=== PATIENT | female | born 1930 | race Caucasian/White ===

== ENCOUNTER → 2017-02-28 | Outpatient (CLI) | payer MEDICARE ==
[~2017-02-28] MED LIST: ALEV220C2 PO; ASPI81CH PO; ATOR1TAB19 PO; CELE1CAP9 PO; DONETAB6 PO; LEVO30TA PO; OMEP20CA3 PO; PRED20TA PO; VITA200028 PO; [UNRECOGNIZED DRUG - OTHER] PO
--- NOTE | 2017-02-28 13:09 | REP ---
RIGHT WRIST SERIES: FOUR VIEWS. History: Pain. Findings: Four views of the right wrist demonstrate dorsal soft tissue swelling over the carpus. There is advanced diffuse osteoporosis. 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 There is no evidence of fracture or other acute bony abnormality. Impression: Osteoarthritis as above and diffuse osteoporosis. No acute bony abnormality seen. Signed by Adebayo Klein MD 02/28/2017 03:05 P
== END ==
LOC: M WUC 11:04
PROVIDERS: ATTEND Physician Assistant
DX: M25.531 Pain in right wrist (principal); M19.031 Primary osteoarthritis, right wrist; M81.0 Age-related osteoporosis without current pathological fracture

== ENCOUNTER 2017-03-06 10:38 | Emergency (ER) | payer MEDICARE ==
[~2017-03-06] VITALS: Ht 162.6 cm; Wt 71.5 kg
[2017-03-06] MEDS ORDERED: CELE1CAP9 PO (10:53)
[2017-03-06] MEDS ORDERED: ATOR1TAB19 PO (10:53)
[2017-03-06] MEDS ORDERED: [UNRECOGNIZED DRUG - OTHER] PO (10:53)
[2017-03-06] MEDS ORDERED: VITA200028 PO (10:53)
[2017-03-06] MEDS ORDERED: DONETAB6 PO (10:53)
[2017-03-06] MEDS ORDERED: ASPI81CH PO (10:53)
[2017-03-06] MEDS ORDERED: LEVO30TA PO (10:53)
[2017-03-06] MEDS ORDERED: ALEV220C2 PO (10:53)
[2017-03-06] MEDS ORDERED: OMEP20CA3 PO (10:53)
[2017-03-06 12:42] LABS: BASO % 0.1 % (0.0-1.0); EOS # 0.1 10^3/uL (0.0-0.50); EOS % 0.7 % (0.0-3.0); IMMATURE GRANULOCYTE % 0.2 % (0-0); LYMPH # 2.5 10^3/uL (1.5-4.5); LYMPH % 29.4 % (24.0-44.0); MEAN CORPUSCULAR HEMOGLOBIN 31.4 pg (27.0-33.0); MEAN CORPUSCULAR VOLUME 95.2 fl (80.0-96.0); MONO # 1.3 10^3/uL (0.0-0.8); NEUTROPHILS # 4.6 10^3/uL (1.8-7.7); NEUTROPHILS % 54.6 % (36.0-66.0); PLATELET COUNT, AUTOMATED 236 10^3/uL (150-450); WHITE BLOOD COUNT 8.5 10^3/uL (4.0-10.0)
[2017-03-06 12:43] LABS: ADD MANUAL DIFFER NO; DIFF SLIDE NUMBER 128
[2017-03-06 13:06] LABS: URIC ACID 3.3 MG/DL (2.6-6.0)
[2017-03-06] MEDS ORDERED: PRED20TA PO (13:33)
[2017-03-06 13:34] LABS: ERYTHROCYTE SEDIMENTATION RATE 66 mm/hr (0-42)
[2017-03-06 13:40] VITALS: BP 138/88
[2017-03-06] MEDS ORDERED: predniSONE 20 MG TAB PO ONE (13:45)
--- NOTE | 2017-03-06 13:54 | REP ---
REASON FOR EXAM: Pain and swelling. COMPARISON: 02/28/2017 which showed degenerative changes. Today's examination again shows degenerative changes. There has been no significant change from the prior exam of 6 days ago. The bones are demineralized. IMPRESSION: There are degenerative changes status quo. I see no evidence of significant change compared to the prior exam. There is no plain radiographic evidence of an acute fracture. Since the patient is complaining of chronic pain, I would suggest followup with an MRI if clinically relevant. Signed by Phil Samuel DO 03/06/2017 02:09 P
== END 2017-03-06 13:45 | disposition home or self-care (01) ==
LOC: M ED 11:45
DX: M79.89 Other specified soft tissue disorders (principal)